=== PATIENT | female | born 1965 ===

== ENCOUNTER 2016-09-05 11:32 | Emergency (ER) | payer MEDICARE, OTHER ==
[~2016-09-05] VITALS: Ht 167.6 cm; Wt 65.5 kg
[~2016-09-05 11:32] MED LIST: CYCL10TA9 PO; DULO20CA PO; DULO30CA PO; GABA400C PO; GABA800T2 PO; HYDR-3740 PO; HYDR200T5 PO; INFL100V IV; LEFL20TA18 PO; OMEP20CA11 PO; PRE10 PO
[2016-09-05 11:37] VITALS: BP 100/65; PULSE 90; RESP 18; O2SAT 97
--- NOTE | 2016-09-05 13:07 | ED.REPORT ---
HPI-General Illness Date of Service September 05, 2016 ED Provider: Dr. Mayfield 50 y/o female with a hx of rheumatoid arthritis presents to the ED complaining of worsening jaw pain which radiates down to her neck, onset a month ago. The pain is worse on the right side. Pt reports it hurts to swallow and open or close her jaw. She also reports mild chest pain, onset two days ago. She denies fever, pain with hot of cold liquids and cough.. The pt is currently taking antibiotics, which she was prescribed at an urgent care clinic. Nursing Notes Stated Complaint: JAW PAIN Chief Complaint: General Complaint Nursing Notes Reviewed: Yes Allergies: Coded Allergies: codeine (Verified Allergy, Unknown, 09/21/15) Scheduled Duloxetine (Cymbalta) 20 Mg Capsule 20 MG PO BID Duloxetine (Cymbalta) 30 Mg Capsule.dr 30 MG PO BID Gabapentin (Gabapentin) 800 Mg Tablet 800 MG PO BID Gabapentin (Neurontin) 400 Mg Capsule 800 MG PO BID Hydroxychloroquine Sulfate (Hydroxychloroquine Sulfate) 200 Mg Tablet 400 MG PO DAILY Infliximab (Remicade) 10 Mg/Ml Sdv 100 MG IV Q8WK Leflunomide (Leflunomide) 20 Mg Tablet 20 MG PO DAILY Omeprazole (Omeprazole) 20 Mg Capsule.dr 20 MG PO DAILY Prednisone (PredniSONE) 10 Mg Tablet 10 MG PO DAILY Scheduled PRN Cyclobenzaprine (Cyclobenzaprine) 10 Mg Tablet 5-20 MG PO HS PRN PRN Spasm Hydrocodone-Acetaminophen 10-325 mg (Hydrocodone-Acetaminophen 10-325 mg) 1 Each Tablet 1 TABLET PO Q8 PRN PRN For Pain General Time Seen by MD: 13:07 Chief Complaint Other (Jaw pain) Hx Obtained From: Patient Arrived By: Walk-in Sudden in Onset?: No Onset Occurred: More than a week ago... (4 weeks) Symptom Duration: Since onset Location: : Mouth Quality: Painful Severity: Current: Mild Severity: Maximum: Mild Recent Healthcare: Recent doctor visit Similar Sx Previous: No Past Medical History Past Medical History Rheumatoid Arthritis on prednisone (10mg/d) Past Surgical History [place] tooth Tubal ligation Family History noncontributory Smoking History Former Smoker Social History Drug Use: THC Other Social History: , Local resident Ambulatory Status Independent Review of Systems Reports: Jaw pain Full Review of Systems Constitutional: Denies: Fever Respiratory: Denies: Non-productive cough Cardiovascular: Reports: Chest pain (mild), Dyspnea on exertion, Edema, Orthopnea, Palpitations, Parox nocturnal dyspnea, Syncope GI: Reports: Dysphagia Musculoskeletal: Reports: Neck pain Complete sys rev & neg: except as marked. Physical Exam Vital Signs Vital Signs Date Time Temp Pulse Resp B/P Pulse Ox O2 Delivery O2 Flow Rate FiO2 09/05/16 11:37 36.7 90 18 100/65 97 Room Air Initial VS: Reviewed Head / Eyes: Atraumatic, Normocephalic, PERRL Neck: Supple, Non-tender, Full range of motion Respiratory: Breath sounds normal, Clear to auscultation, No respiratory distress Cardiovascular: Regular rate & rhythm, Heart sounds normal, Intact distal pulses Abdomen / GI: Soft, Non-tender, No guarding, No rebound, No distention Extremities: Vascular intact, Neuro intact, No swelling, No tenderness Skin: Warm, Dry, No cyanosis Neurologic: Alert, Oriented, Nonfocal General/Constitutional: Awake, Alert, Cooperative, Not toxic appearing Distress / Hydration: Positive: Distress mild ENT: Atraumatic, Airway patent Mild lymphadenopathy Interpretation & Diagnostics Lab Results Interpretation Result Diagram: 09/05/16 1340 09/05/16 1340 Test 09/05/16 13:40 White Blood Count 6.8th/mm3 (3.8-10.1) Red Blood Count 4.56mil/mm3 (3.90-5.20) Hemoglobin 13.3g/dL (12.0-15.6) Hematocrit 39.5% (35.0-46.0) Mean Corpuscular Volume 86.6fL (81-100) Mean Corpuscular Hemoglobin 29.2pg (27.0-35.0) Mean Corpuscular Hemoglobin Concent 33.7% (32.0-37.0) Red Cell Distribution Width 13.1% (12.3-15.4) Platelet Count 352bil/L (150-400) Neutrophils (%) (Auto) 76.1% (40-74) Lymphocytes (%) (Auto) 14.5% (14-46) Monocytes (%) (Auto) 7.5% (4-12) Eosinophils (%) (Auto) 1.5% (0-5) Basophils (%) (Auto) 0.3% (0-3) Erythrocyte Sedimentation Rate 59mm/hr (0-32) Sodium Level 143mEq/L (134-144) Potassium Level 3.7mEq/L (3.5-5.2) Chloride Level 104mEq/L (97-108) Carbon Dioxide Level 24mmol/L (18-29) Blood Urea Nitrogen 3mg/dL (6-24) Creatinine 0.58mg/dL (0.57-1.00) Estimat Glomerular Filtration Rate 158mL/min (>59) Glucose Level 118mg/dL (60-99) Calcium Level 9.1mg/dL (8.5-10.1) Re-Eval/Medical Decision Med Decision/Clinical Course Sinusitis which may be very recently she is having Khris neck pain, there is no evidence of deep space abscess or obvious bony erosion after a month of symptoms, she will be discharged on Augmentin, naproxen, tramadol. Return and follow-up precautions given. Counseled Regarding: Diagnosis, Lab results, Need for follow-up, When/why to return to ED Discharge & Departure Primary Impression: Sinusitis Disposition: Home Discharge Condition All VS Reviewed: Yes Additional Instructions: Take Augmentin, naproxen, Tylenol, tramadol. Follow-up with ENT in the next week. Also call your regular doctor for repeat evaluation. Go to the closest ER if you develop severe fever, severe headache, or other concerns. Referrals: Gillian Ly PA-C (PCP) Timoibe Attestation Portions of this note were transcribed by Matt Vela. I, , personally performed the history, physical exam and medical decision-making;I reviewed and confirmed the accuracy of the information in the transcribed note. Signed by Zeynep Solano. 09/05/16 1502 copies to: Gillian yL PA-C, Timothy S DO September 05, 2016 13:07 Matt Vela September 05, 2016 13:34
[2016-09-05] MEDS ORDERED: 0.9% Sodium Chloride 1,000 ML IV ONE (13:35)
[2016-09-05] MEDS ORDERED: Ketorolac 15 mg/mL Inj IVPUSH ONE (13:35)
[2016-09-05] MEDS ORDERED: Ondansetron 2 mg/mL 2 mL Inj IVPUSH PRN (13:35)
[2016-09-05 13:48] LABS: BASOPHILS % (AUTO) 0.3 % (0-3); EOSINOPHILS % (AUTO) 1.5 % (0-5); MONOCYTES % (AUTO) 7.5 % (4-12); Mean Corpuscular Hemoglobin 29.2 pg (27.0-35.0); Mean Corpuscular Volume 86.6 fL (81-100); NEUTROPHILS % (AUTO) 76.1 % (40-74); Platelet Count 352 bil/L (150-400)
[2016-09-05 14:05] LABS: ERYTHROCYTE SEDIMENTATION RATE 59 mm/hr (0-32)
--- NOTE | 2016-09-05 15:24 | DRSVH ---
PROCEDURE: CT NECK SOFT TISSUES WITH CONTRAST ([id number]) INDICATIONS: neck pain, immunocompromised TECHNIQUE: After the administration of intravenous contrast, 3.0 mm axial sections acquired from the sella to th e aortic arch. Additional oblique axial 3.0 mm sections acquired through the pharynx. 3 mm thick co benja reformats were generated. For radiation dose reduction, the following was used: automated exp osure control. COMPARISON: None. FINDINGS: Image quality: Excellent. Lymph nodes: No enlarged lymph nodes seen throughout the neck. Vessels: Visualized vasculature appears patent. Neck spaces: The oropharynx, nasopharynx, and pharynx demonstrate no mucosal lesions. The vocal cor ds, false vocal cords, pyriform sinuses, epiglottis, vallecula, and tongue base all appear normal. E xtramucosal spaces appear unremarkable. Glands: The parotid and submandibular glands appear normal. Thyroid gland is within normal limits. Miscellaneous: Visualized brain and orbits appear normal. Lung apices appear clear. Superficial so ft tissues appear normal. Bones: No suspicious bony lesions. Moderate right maxillary sinus mucosal thickening. Bilateral sphe noid sinus mucosal thickening. Mastoids are clear. IMPRESSION: 1. No acute process. 2. Right maxillary and bilateral sphenoid sinus mucosal thickening. Dictated by: Chelsie Ramirez M.D. on 09/05/2016 at 15:21 Approved by: Chelsie Ramirez M.D. on 09/05/2016 at 15:23
[2016-09-05] MEDS ORDERED: AMOX-366 PO (15:40)
[2016-09-05] MEDS ORDERED: NPR500T PO (15:40)
[2016-09-05] MEDS ORDERED: TRAM50TA2 PO (15:40)
[2016-09-05 15:55] VITALS: BP 112/61; PULSE 75; RESP 14; O2SAT 98
== END 2016-09-05 15:56 | disposition home or self-care (01) ==
LOC: SED 11:32
DX: J32.9 Chronic sinusitis, unspecified (principal); M06.00 Rheumatoid arthritis without rheumatoid factor, unspecified site; Z87.891 Personal history of nicotine dependence; Z88.5 Allergy status to narcotic agent
CPT/HCPCS: 36415; 70491; 80048; 85025; 85651; 96361; 96374; 96375; 99285; J1885; J2270; J2405; J7030; Q9967

== ENCOUNTER 2016-09-22 11:00 | Emergency (ER) | payer MEDICARE, OTHER ==
[~2016-09-22] VITALS: Ht 167.6 cm; Wt 63.2 kg
[~2016-09-22 11:00] MED LIST changes: +AMOX-366 PO; +NPR500T PO; +TRAM50TA2 PO
[2016-09-22 11:06] VITALS: BP 110/58; PULSE 73; RESP 16; O2SAT 98
--- NOTE | 2016-09-22 11:18 | ED.REPORT ---
HPI-General Illness Date of Service September 22, 2016 ED Provider: Alexey Copeland MD 50 year old female with a history of RA, OA, and fibromyalgia presents to the ER via EMS due to acute on chronic musculoskeletal pain onset this morning. Pain is primarily localized in her back, knees, elbows, and ankles, and is so severe that she is "unable to move". She denies fever, nausea, vomiting, and any other symptoms at this time. Patient takes Humira, Prednisone, and gabapentin. She was recently on a course of antibiotics for a sinus infection. Nursing Notes Stated Complaint: FIBROMYALGIA Chief Complaint: General Complaint Nursing Notes Reviewed: Yes Allergies: Coded Allergies: codeine (Verified Allergy, Unknown, 09/21/15) Scheduled Amoxicillin/Clav K 875-125 mg (Augmentin 875-125 mg) 1 Each Tablet 1 TABLET PO BID Duloxetine (Cymbalta) 20 Mg Capsule 20 MG PO BID Duloxetine (Cymbalta) 30 Mg Capsule.dr 30 MG PO BID Gabapentin (Gabapentin) 800 Mg Tablet 800 MG PO BID Gabapentin (Neurontin) 400 Mg Capsule 800 MG PO BID Hydroxychloroquine Sulfate (Hydroxychloroquine Sulfate) 200 Mg Tablet 400 MG PO DAILY Infliximab (Remicade) 10 Mg/Ml Sdv 100 MG IV Q8WK Leflunomide (Leflunomide) 20 Mg Tablet 20 MG PO DAILY Omeprazole (Omeprazole) 20 Mg Capsule.dr 20 MG PO DAILY Prednisone (PredniSONE) 10 Mg Tablet 10 MG PO DAILY Scheduled PRN Cyclobenzaprine (Cyclobenzaprine) 10 Mg Tablet 5-20 MG PO HS PRN PRN Spasm Hydrocodone-Acetaminophen 10-325 mg (Hydrocodone-Acetaminophen 10-325 mg) 1 Each Tablet 1 TABLET PO Q8 PRN PRN For Pain Naproxen (Naproxen) 500 Mg Tab 500 MG PO BID PRN PRN For Pain Tramadol (Tramadol) 50 Mg Tablet 50 MG PO QID PRN PRN For Pain General Time Seen by MD: 11:17 Chief Complaint Other (Musculoskeletal Pain) Hx Obtained From: Patient Arrived By: Ambulance Sudden in Onset?: No Onset Occurred: 1 - 4 hours ago Symptom Duration: Since onset Pertinent Negative: Pt denies other symptoms Similar Sx Previous: Yes Past Medical History Past Medical History Rheumatoid Arthritis Osteoarthritis Fibromyalgia Past Surgical History [place] tooth Tubal ligation Family History noncontributory Smoking History Current Every Day Smoker Social History Alcohol Use: Denies alcohol use Drug Use: THC Other Social History: , Local resident Ambulatory Status Independent Review of Systems Full Review of Systems Constitutional: Denies: Chills, Fever Respiratory: Denies: Non-productive cough, Shortness of breath Cardiovascular: Denies: Chest pain GI: Denies: Abdominal pain, Nausea, Vomiting Musculoskeletal: Reports: Back pain, Extremity pain, Joint pain, Denies: Neck pain Complete sys rev & neg: except as marked. Physical Exam Vital Signs Vital Signs Date Time Temp Pulse Resp B/P Pulse Ox O2 Delivery O2 Flow Rate FiO2 09/22/16 11:06 37.1 73 16 110/58 98 Room Air Initial VS: Reviewed Head / Eyes: Atraumatic, Normocephalic Neck: Supple, Non-tender, Full range of motion Abdomen / GI: Soft, Non-tender, No guarding, No rebound, No distention Skin: Warm, Dry, No cyanosis Neurologic: Alert, Oriented, Nonfocal General/Constitutional: Awake, Alert, Well developed Behavior: Positive: Tearful Respiratory / Chest: Breath sounds NL, No respiratory distress, No rales, No rhonchi, No wheezing Cardiovascular: Heart rate NL, Regular rhythm, Heart sounds NL, Cap refill not delayed, Peripheral circulation NL Abdomen: Soft, No guarding, No rebound, No palpable mass Complains of diffuse abdominal pain. Wrist / Hand: Full range of motion, Neurologic intact, Vascular intact Deformity of hands consistent with rheumatoid arthritis. Re-Eval/Medical Decision Source of Hx: Old records Time of Eval: 11:48 Re-Evaluation/Progress Note: Clarified PCP information with patient. Time of Eval: 12:24 Re-Evaluation/Progress Note: Discussed plan to discharge with plan for close follow-up. Patient is amenable to the plan. Return precautions given. All other questions addressed. I told her that I was not willing to prescribe narcotic medication at this time but have made arrangements for her to see her provider as noted Consultation #1: Referral / Consult Name: Brooke Mehta PA-C Call Returned at: 11:54 Provisioning Analyst: Will see in office Note: Will see patient today at 15:30. No narctoics. Call tire shop mechanic. Consultation #2: Referral / Consult Name: Eugenio Wiley MD Consulted With: On-call physician (Rheumatology) Call Returned at: 12:20 Provisioning Analyst: Will see in office Note: If rheumatoid factor is suspected, prescribe up to 20mg Prednisone daily. Counseled Regarding: Diagnosis, Lab results, Need for follow-up, When/why to return to ED Discharge & Departure Primary Impression: Fibromyalgia Additional Impressions: Rheumatoid arthritis Rheumatoid arthritis location: unspecified site Rheumatoid factor presence: with rheumatoid factor Qualified Code: M05.9 - Rheumatoid arthritis with rheumatoid factor, unspecified Osteoarthritis Osteoarthritis location: unspecified site Osteoarthritis type: unspecified Qualified Code: M19.90 - Unspecified osteoarthritis, unspecified site Disposition: Home Discharge Condition All VS Reviewed: Yes Condition: Stable Patient Instructions: Fibromyalgia (ED) Additional Instructions: I do not suspect and immediately dangerous cause for the exacerbation of your pain today. Regarding management of your pain I recommend that you see WESLEY Lozano, today at 3:30p.m. at the [facility]. Additionally, Dr. Wiley will be seeing you next week as previously arranged. He did tell me that if the exacerbation of pain you are currently experiencing is related to your rheumatoid disease, that increasing the prednisone to 20 mg daily may be quite helpful. you told me that you believe that the pain is primarily from fibromyalgia which of course would not be terribly responsive to an increased dose of prednisone. Referrals: Gillian Ly PA-C (PCP) Zeynep Attestation Portions of this note were transcribed by Timothy Fischer. I, Dr. Copeland, personally performed the history, physical exam and medical decision-making; I reviewed and confirmed the accuracy of the information in the transcribed note. Signed by: Zeynep Hughes, 09/22/2016 at 12:26 copies to: Gillian Ly PA-C, Kirk H MD September 22, 2016 11:18 TIMOTHY FISCHER September 22, 2016 11:38
== END 2016-09-22 12:49 | disposition home or self-care (01) ==
LOC: EDUNIT# 11:00 → EDBD 11:00 → SED 11:00
DX: M79.7 Fibromyalgia (principal); M05.9 Rheumatoid arthritis with rheumatoid factor, unspecified; M19.90 Unspecified osteoarthritis, unspecified site; F17.200 Nicotine dependence, unspecified, uncomplicated; Z88.5 Allergy status to narcotic agent